=== PATIENT | female | born 1985 | race American Indian/Alaskan Native ===

== ENCOUNTER 2017-05-15 02:05 | Emergency (ER) | payer MEDICAID ==
[2017-05-15 03:05] LABS: Anion Gap 17 mmol/L; Blood Urea Nitrogen 14 mg/dL (7-17); Calcium 8.9 mg/dL (8.4-10.2); Carbon Dioxide 24 mmol/L (22-30); Chloride 99.6 mmol/L (98-107); Glucose 96 mg/dL (65-100); Potassium 3.5 mmol/L (3.6-5.0); Sodium 137 mmol/L (137-145)
[2017-05-15 03:07] LABS: Basophils % (Auto) 0.5 % (0.0-1.8); Eosinophils % (Auto) 2.4 % (0.0-4.3); Hemoglobin 12.2 gm/dl (10.1-14.3); Mean Corpuscular HGB Conc 32 % (30-34); Mean Corpuscular Hemoglobin 28 pg (28-32); Mean Corpuscular Volume 86 fl (79-97); Platelet Count 291 K/mm3 (140-440); Red Blood Count 4.42 M/mm3 (3.65-5.03); Red Cell Distribution Width 14.1 % (13.2-15.2); White Blood Count 8.9 K/mm3 (4.5-11.0)
[2017-05-15] MEDS ORDERED: TORADOL ONE (13:39)
[2017-05-15] MEDS ORDERED: TORADOL IV ONE (13:39)
--- NOTE | 2017-05-15 13:42 | Emergency Department Report ---
ED Chest Pain HPI - General Chief Complaint: Chest Pain Stated Complaint: CP/HEAD/SOB Time Seen by Provider: 05/15/17 13:20 Source: patient Mode of arrival: Ambulatory Limitations: No Limitations - History of Present Illness Initial Comments: Patient is a 31-year-old female here with complaint chest pain. She has this intermittently and has been worsening over the last 2 days. Denies fevers chills nausea vomiting. Her only associated symptom is occasional shortness of breath. But this is not always present when she has chest pain. She also complains of a mild headache which is now resolved. MD Complaint: chest pain -: Sudden Onset: during rest, during exertion Pain Location: substernal Pain Radiation: none Severity: mild Quality: tightness Improves With: nothing Worsens With: supine re: dyspnea. denies: nausea, vomting, diaphoresis Other Symptoms: denies: cough, fever, syncope, rash, acid taste in mouth, leg swelling, palpitations Treatments Prior to Arrival: none - Related Data Home Medications Medication Instructions Recorded Confirmed Last Taken Ferrous Sulfate [Feosol] 08/12/13 08/12/13 Unknown Previous Rx's Medication Instructions Recorded Last Taken Type Promethazine [Phenergan] 25 mg PO Q6H PRN #14 tablet 10/24/14 Unknown Rx Sulfamethoxazole/Trimethoprim 1 each PO BID 7 Days 10/24/14 Unknown Rx [Bactrim Ds] Ibuprofen [Motrin] 600 mg PO Q8H PRN #30 tablet 05/15/17 Unknown Rx Allergies Allergy/AdvReac Type Severity Reaction Status Date / Time No Known Allergies Allergy Verified 05/15/17 02:21 Heart Score - HEART Score History: Slightly suspicious EKG: Normal Age: < 45 Risk factors: No known risk factors Troponin: < normal limit HEART Score: 0 - Critical Actions Critical Actions: 0-3 pts:0.9-1.7%risk of adverse cardiac event.Candidate for discharge ED Review of Systems ROS: Stated complaint: CP/HEAD/SOB Other details as noted in HPI Constitutional: denies: chills, fever Eyes: denies: eye pain, eye discharge, vision change ENT: denies: ear pain, throat pain Respiratory: shortness of breath. denies: cough, wheezing Cardiovascular: denies: chest pain, palpitations Endocrine: no symptoms reported Gastrointestinal: denies: abdominal pain, nausea, diarrhea Genitourinary: denies: urgency, dysuria, discharge Musculoskeletal: denies: back pain, joint swelling, arthralgia Skin: denies: rash, lesions Neurological: headache. denies: weakness, paresthesias Psychiatric: denies: anxiety, depression Hematological/Lymphatic: denies: easy bleeding, easy bruising ED Past Medical Hx - Past Medical History Hx Hypertension: Yes - Surgical History Past Surgical History?: Yes Additional Surgical History: breast reduction - Family History Family history: no significant - Social History Smoking Status: Current Every Day Smoker Substance Use Type: Alcohol - Medications Home Medications: Home Medications Medication Instructions Recorded Confirmed Last Taken Type Ferrous Sulfate [Feosol] 08/12/13 08/12/13 Unknown History Promethazine [Phenergan] 25 mg PO Q6H PRN #14 tablet 10/24/14 Unknown Rx Sulfamethoxazole/Trimethoprim 1 each PO BID 7 Days 10/24/14 Unknown Rx [Bactrim Ds] Ibuprofen [Motrin] 600 mg PO Q8H PRN #30 tablet 05/15/17 Unknown Rx ED Physical Exam - General Limitations: No Limitations General appearance: alert, in no apparent distress - Head Head exam: Present: atraumatic, normocephalic - Eye Eye exam: Present: normal appearance - ENT ENT exam: Present: mucous membranes moist - Neck Neck exam: Present: normal inspection - Respiratory Respiratory exam: Present: normal lung sounds bilaterally. Absent: respiratory distress - Cardiovascular Cardiovascular Exam: Present: regular rate, normal rhythm. Absent: systolic murmur, diastolic murmur, rubs, gallop - GI/Abdominal GI/Abdominal exam: Present: soft, normal bowel sounds - Extremities Exam Extremities exam: Present: normal inspection - Back Exam Back exam: Present: normal inspection - Neurological Exam Neurological exam: Present: alert, oriented X3 - Psychiatric Psychiatric exam: Present: normal affect, normal mood - Skin Skin exam: Present: warm, dry, intact, normal color. Absent: rash ED Course Vital Signs 05/15/17 05/15/17 05/15/17 02:22 12:33 12:34 Temperature 98.7 F Pulse Rate 93 H 80 81 Respiratory 16 16 Rate Blood Pressure 158/108 Blood Pressure [Right] O2 Sat by Pulse 96 Oximetry 05/15/17 05/15/17 05/15/17 12:36 12:38 12:40 Temperature Pulse Rate 96 H 77 79 Respiratory 17 15 15 Rate Blood Pressure 141/95 141/95 141/95 Blood Pressure [Right] O2 Sat by Pulse 100 100 100 Oximetry 05/15/17 05/15/17 05/15/17 12:42 12:44 12:46 Temperature Pulse Rate 73 73 70 Respiratory 23 16 16 Rate Blood Pressure 141/95 141/95 141/95 Blood Pressure [Right] O2 Sat by Pulse 100 100 100 Oximetry 05/15/17 05/15/17 05/15/17 12:48 12:50 12:52 Temperature Pulse Rate 76 77 68 Respiratory 12 22 15 Rate Blood Pressure 141/95 141/95 141/95 Blood Pressure [Right] O2 Sat by Pulse 100 100 100 Oximetry 05/15/17 05/15/17 05/15/17 12:54 12:56 12:58 Temperature Pulse Rate 78 75 75 Respiratory 21 20 20 Rate Blood Pressure 141/95 141/95 141/95 Blood Pressure [Right] O2 Sat by Pulse 100 100 100 Oximetry 05/15/17 05/15/17 05/15/17 13:00 13:02 13:04 Temperature 98.9 F Pulse Rate 72 78 77 Respiratory 18 17 22 Rate Blood Pressure 141/95 129/70 129/70 Blood Pressure 148/72 [Right] O2 Sat by Pulse 100 100 100 Oximetry 05/15/17 05/15/17 05/15/17 13:06 13:08 13:10 Temperature Pulse Rate 75 77 72 Respiratory 20 21 20 Rate Blood Pressure 129/70 129/70 129/70 Blood Pressure [Right] O2 Sat by Pulse 100 100 100 Oximetry 05/15/17 05/15/17 05/15/17 13:12 13:14 13:16 Temperature Pulse Rate 74 87 75 Respiratory 21 16 17 Rate Blood Pressure 129/70 129/70 129/70 Blood Pressure [Right] O2 Sat by Pulse 100 100 100 Oximetry 05/15/17 05/15/17 05/15/17 13:18 13:20 13:22 Temperature Pulse Rate 64 84 66 Respiratory 10 L 16 15 Rate Blood Pressure 129/70 129/70 129/70 Blood Pressure [Right] O2 Sat by Pulse 100 99 100 Oximetry 05/15/17 05/15/17 05/15/17 13:24 13:26 13:28 Temperature Pulse Rate 70 66 77 Respiratory 22 15 16 Rate Blood Pressure 129/70 129/70 129/70 Blood Pressure [Right] O2 Sat by Pulse 100 100 99 Oximetry 05/15/17 05/15/17 05/15/17 13:30 13:32 13:34 Temperature Pulse Rate 84 71 62 Respiratory 13 21 14 Rate Blood Pressure 129/70 129/70 129/70 Blood Pressure [Right] O2 Sat by Pulse 100 100 100 Oximetry 05/15/17 05/15/17 05/15/17 13:36 13:38 13:40 Temperature Pulse Rate 66 69 71 Respiratory 19 19 17 Rate Blood Pressure 129/70 129/70 129/70 Blood Pressure [Right] O2 Sat by Pulse 99 99 99 Oximetry 05/15/17 05/15/17 05/15/17 13:42 13:44 13:46 Temperature Pulse Rate 72 71 69 Respiratory 18 15 21 Rate Blood Pressure 129/70 129/70 129/70 Blood Pressure [Right] O2 Sat by Pulse 100 100 100 Oximetry 05/15/17 05/15/17 05/15/17 13:48 13:50 13:52 Temperature Pulse Rate 81 71 76 Respiratory 22 16 25 H Rate Blood Pressure 129/70 129/70 129/70 Blood Pressure [Right] O2 Sat by Pulse 100 100 100 Oximetry 05/15/17 05/15/17 05/15/17 13:54 13:56 13:58 Temperature Pulse Rate 70 76 77 Respiratory 19 16 22 Rate Blood Pressure 129/70 129/70 129/70 Blood Pressure [Right] O2 Sat by Pulse 99 99 100 Oximetry 05/15/17 05/15/17 05/15/17 14:00 14:02 14:04 Temperature Pulse Rate 76 80 77 Respiratory 14 18 22 Rate Blood Pressure 135/88 129/70 129/70 Blood Pressure [Right] O2 Sat by Pulse 99 99 100 Oximetry 05/15/17 05/15/17 05/15/17 14:06 14:08 14:21 Temperature Pulse Rate 77 76 Respiratory 18 16 18 Rate Blood Pressure 129/70 129/70 Blood Pressure [Right] O2 Sat by Pulse 100 100 Oximetry KERRY score - Kerry Score Age > 65: (0) No Aspirin use within the Past 7 Days: (0) No 3 or more CAD Risk Factors: (0) No 2 or more Angina events in past 24 hrs: (0) No Known CAD with more than 50% Stenosis: (0) No Elevated Cardiac Markers: (0) No ST Deviation Greater than 0.5mm: (0) No KERRY Score: 0 ED Medical Decision Making - Lab Data Result diagrams: 05/15/17 02:33 05/15/17 02:33 Laboratory Results - last 24 hr 05/15/17 05/15/17 05/15/17 02:33 02:33 05:23 WBC 8.9 RBC 4.42 Hgb 12.2 Hct 38.0 MCV 86 MCH 28 MCHC 32 RDW 14.1 Plt Count 291 Lymph % (Auto) 27.4 [place] % (Auto) 9.1 H Eos % (Auto) 2.4 Baso % (Auto) 0.5 Lymph # 2.4 [place] # 0.8 Eos # 0.2 Baso # 0.0 Seg Neutrophils % 60.6 Seg Neutrophils # 5.4 Sodium 137 Potassium 3.5 L Chloride 99.6 Carbon Dioxide 24 Anion Gap 17 BUN 14 Creatinine 0.7 Estimated GFR > 60 BUN/Creatinine Ratio 20.00 Glucose 96 Calcium 8.9 Troponin T < 0.010 < 0.010 Abnormal Lab Results 05/15/17 05/15/17 05/15/17 02:33 02:33 05:23 WBC 8.9 RBC 4.42 Hgb 12.2 Hct 38.0 MCV 86 MCH 28 MCHC 32 RDW 14.1 Plt Count 291 Lymph % (Auto) 27.4 [place] % (Auto) 9.1 H Eos % (Auto) 2.4 Baso % (Auto) 0.5 Lymph # 2.4 [place] # 0.8 Eos # 0.2 Baso # 0.0 Seg Neutrophils % 60.6 Seg Neutrophils # 5.4 Sodium 137 Potassium 3.5 L Chloride 99.6 Carbon Dioxide 24 Anion Gap 17 BUN 14 Creatinine 0.7 Estimated GFR > 60 BUN/Creatinine Ratio 20.00 Glucose 96 Calcium 8.9 Troponin T < 0.010 < 0.010 - EKG Data Interpretation: no acute changes, normal EKG 05/15/17 13:46 Sinus 78 and normal axis normal intervals no ST-T wave changes - Radiology Data Radiology results: image reviewed - Medical Decision Making Patient is 31-year-old female here with chest pain. She's had this pain multiple times in the past. It is atypical for ACS and for PE. She is PERC rule negative. EKG without any concerning features. Her labs are unremarkable. Plan to treat her with NSAIDs and discharge. Chest x-ray clear. Likely muscular skeletal pain discussed the patient will discharge. Portions of this chart were dictated with dictation software. There may be dictation errors contained within this note. Critical Care Time: No Critical care attestation.: If time is entered above; I have spent that time in minutes in the direct care of this critically ill patient, excluding procedure time. ED Disposition Clinical Impression: Chest pain Disposition: DC- TO HOME OR SELFCARE Is pt being admited?: No Does the pt Need Aspirin: No Condition: Stable Instructions: Chest Pain (ED) Prescriptions: Ibuprofen [Motrin] 600 mg PO Q8H PRN #30 tablet PRN Reason: Pain Referrals: PRIMARY CARE, [Primary Care Provider] - 3-5 Days
[2017-05-15 16:41] VITALS: BP 136/80
--- NOTE | 2017-05-16 08:18 | XRay Report ---
CHEST TWO VIEWS: 05/15/17 15:49 CLINICAL: Chest pain. COMPARISON: None FINDINGS: Normal heart and pulmonary vasculature. The lungs are normally expanded and clear.The bones and soft tissues are unremarkable. IMPRESSION: Normal chest.
== END 2017-05-15 16:43 | disposition home or self-care (01) ==
LOC: ED 02:05
DX: R07.89 Other chest pain (principal); R06.02 Shortness of breath; I10 Essential (primary) hypertension; F17.210 Nicotine dependence, cigarettes, uncomplicated
CPT/HCPCS: 36415; 71020; 80048; 84484; 85025; 93005; 93010; 96374; 99284; J1885